=== PATIENT | male | born 1995 | race Two or more races ===

== ENCOUNTER 2023-12-28 06:07 | Emergency (ER) | payer OTHER ==
[~2023-12-28] VITALS: Ht 183.5 cm; Wt 95.5 kg
--- NOTE | 2023-12-28 06:33 | ED.PDOC ---
HPI (NEURO) HPI Comments 28 year old male with a history of migraines presents for a chief complaint of of right temporal headache that radiates to the posterior neck. Associated with photophobia. Onset: 2 days ago. No prior history of migraines. Was seen at his PCP at [place] yesterday and was Rx Sumatriptan with no improvement Has also tried IBU and muscle relaxers with no improvement Today he states he also woke up with non radiating lumbosacral back pain Back pain started this morning. Onset was sudden. Reports going to the gym 3 days ago and was squatting and reports symptoms started after Denies fever, chills, night sweats Denies persistent nausea Denies vomiting Denies thunderclap headache Denies phonophobia Denies head trauma around the time headache started Denies family history of brain issues persistent headaches Denies taking any blood thinner medication Denies vision/hearing changes Denies focal loss of strength/sensation or changes in speech Denies IV drug use history of HIV/TB Denies abdominal "tearing" pain Denies syncope Time Seen by MD: 06:19 Reviewed Notes: Nurses Notes, Medications, Allergies Information Source: Patient Past Medical History PAST MEDICAL HISTORY: Denies Family History Family History: Reviewed,noncontributory to illness Social History Smoker: Non-Smoker Alcohol: Denies ETOH Use Drugs: Denies Drug Use All Other Systems: Reviewed and Negative (Per HPI) Physical Exam General Appearance: No Apparent Distress, Normal HEENT: Head (Normocephalic atraumatic), Normal ENT Inspection, PERRL/EOMI, Pharynx Normal, TMs Normal Neck: Full Range of Motion, Normal, Normal Inspection, Other (Tenderness to posterior cervical region to palpation. Full ROM. No nuchal rigidity, brudzinski negative, kernig negative) Respiratory: Chest Non-Tender, Lungs Clear, No Accessory Muscle Use, No Respiratory Distress, Normal Breath Sounds Cardiovascular: No Murmur, No Gallop, Regular Rate/Rhythm Breast Exam: Deferred Gastrointestinal: No Organomegaly, Non Tender, No Pulsatile Mass, Normal Bowel Sounds, Soft Genitalia: Deferred Pelvic: Deferred Rectal: Deferred Extremities: No calf tenderness, Normal capillary refill, Normal inspection, Normal range of motion, Non-tender, No pedal edema Musculoskeletal : Apperance: Normal Neurologic: Alert, speeder frame tender II-XII nml as Tested, No Motor Deficits, Normal Affect, Normal Mood, No Sensory Deficits, Other (Romberg pronator drift negative) Cerebellar Function: Normal Reflexes: Normal Skin: Dry, Normal Color, Warm, Other (No skin rash. No enterovirus rash) Lymphatic: No Adenopathy Was a procedure done? Was a procedure done?: No Differential Diagnosis (SZ) Seizure: Other Headache: Cluster, Migraine, Closed Head Injury, Mass Lesion, Post-Traumatic, Sinusitis X-Ray, Labs, Meds, VS Vital Signs Date Time Temp Pulse Resp B/P (MAP) Pulse Ox O2 Delivery O2 Flow Rate FiO2 12/28/23 09:18 99.0 85 18 122/61 (81) 95 99.0 12/28/23 07:41 112 20 97 Room Air 12/28/23 07:41 100.7 112 20 106/63 (77) 97 100.7 12/28/23 06:14 100.7 112 20 106/63 (77) 97 Lab Test 12/28/23 08:10 12/28/23 06:50 12/28/23 06:35 Range/Units Influenza Type A Antigen Negative Negative Influenza Type B Antigen Negative Negative SARS-CoV-2 Antigen (Rapid) Negative NEGATIVE White Blood Count 8.1 4.4-10.8 10^3/uL Red Blood Count 5.57 4.5-5.90 10^6/uL Hemoglobin 17.9 H 13.5-17.5 g/dL Hematocrit 51.2 41.0-53.0 % Mean Corpuscular Volume 92.0 80.0-100.0 fL Mean Corpuscular Hemoglobin 32.2 H 28.0-32.0 pg Mean Corpuscular Hemoglobin Concent 35.0 32.0-36.0 g/dL Red Cell Distribution Width 12.4 11.8-14.3 % Platelet Count 193 140-450 10^3/uL Mean Platelet Volume 8.1 6.9-10.8 fL Neutrophils (%) (Auto) 74.0 37.0-80.0 % Lymphocytes (%) (Auto) 16.7 10.0-50.0 % Monocytes (%) (Auto) 9.0 0.0-12.0 % Eosinophils (%) (Auto) 0.0 0.0-7.0 % Basophils (%) (Auto) 0.3 0.0-2.0 % Neutrophils # (Auto) 6.0 1.6-8.6 10 ^3/uL Lymphocytes # (Auto) 1.3 0.4-5.4 10 ^3/uL Monocytes # (Auto) 0.7 0-1.3 10 ^3/uL Eosinophils # (Auto) 0 0-0.8 10 ^3/uL Basophils # (Auto) 0 0-0.2 10 ^3/uL Nucleated Red Blood Cells 0.2 % Erythrocyte Sedimentation Rate 7 0-20 mm/hr Sodium Level 136 136-145 mmol/L Potassium Level 4.2 3.5-5.1 mmol/L Chloride Level 103 98-107 mmol/L Carbon Dioxide Level 28 20-31 mmol/L Anion Gap 5 5-15 Blood Urea Nitrogen 12 9-23 mg/dL Creatinine 1.28 0.700-1.30 mg/dL Glomerular Filtration Rate Calc 79 >90 mL/min BUN/Creatinine Ratio 9.4 L 10.0-20.0 Serum Glucose 125 H 74-106 mg/dL Lactic Acid Level 2.0 0.4-2.0 mmol/L Calcium Level 9.7 8.7-10.4 mg/dL Total Bilirubin 0.5 0.2-1.0 mg/dL Aspartate Amino Transferase (AST) 34 13-40 U/L Alanine Aminotransferase (ALT) 69 H 7-40 U/L Alkaline Phosphatase 81 46-116 U/L C-Reactive Protein High Sensitivity 5.78 H <1.0 mg/dL Total Protein 7.9 5.7-8.2 g/dL Albumin 4.5 3.2-4.8 g/dL Hepatitis B Surface Antigen Pending Hepatitis B Surface Antibody Pending Hepatitis C Antibody Pending HIV (1&2) Antibody Negative Negative Urine Color Yellow Yellow Urine Clarity Clear Clear Urine pH 6.5 5.0-9.0 Urine Specific Walker 1.026 1.001-1.035 Urine Protein Trace H Negative Urine Ketones Negative Negative Urine Blood Trace H Negative /uL Urine Nitrite Negative Negative Urine Bilirubin Negative Negative Urine Urobilinogen Normal Negative mg/dL Urine Leukocyte Esterase Negative Negative /uL Urine RBC 8 0 - 3 /hpf Urine WBC 2 0 - 3 /hpf Urine Squamous Epithelial Cells Few <5 /hpf Urine Bacteria None seen None Seen /hpf Urine Mucus Few None Seen Urine Glucose Normal Normal mg/dL Current Medications Medications (Trade) Dose Ordered Sig/Celso Route Start Time Stop Time Status Last Admin Sodium Chloride 1,000 ml @ 1,000 mls/hr Q1H ONCE IV 12/28/23 06:45 12/28/23 07:44 DC 12/28/23 08:18 PATIENT: JARED CATHERINET: [id number]: [id number] : 1995 LOC: ER ROOM / BED: / AGE / SEX: 28 / M ADM STATUS: REG ER SERVICE 4 ORDERING PHYSICIAN: JOE KOVACS NP PROCEDURE(s): HWOCT - HEAD WITHOUT CONTRAST REASON: PAIN ORDER NUMBER(s): [id number], ACCESSION NUMBER(s): [id number] CLINICAL INFORMATION: 28 years old, Male; PAIN. TECHNIQUE: Axial imaging was obtained through the brain without contrast. Coronal and sagittal reformatted images were obtained, reviewed, and stored. Images were reviewed in brain and bone windows. All CT scans at this medical facility are performed using dose modulation techniques as appropriate to a performed exam including the following: Automated exposure control was utilized; adjustment of the MA and/or KV according to patient size; and use of iterative reconstruction technique. CTDIvol = 64.25, 0.07 mGy DLP = 1264.16, 3.16 mGy-cm COMPARISON: None FINDINGS: There is no acute intracranial hemorrhage or extraaxial fluid collection. No mass effect or midline shift. The ventricles and sulci are within normal limits in size for age. Basal cisterns are patent. The calvarium is unremarkable. Paranasal sinuses and mastoid air cells are clear. IMPRESSION: No CT evidence of acute intracranial abnormality. ATED BY: CHAD VASQUEZ DO DICTATED DATE/TIME: 12/28/23735 SIGNED BY: CHAD VASQUEZ DO SIGNED DATE/TIME: 12/28/23735 CC: ATIENT: MARTIN CATHERINECEDRICK: [id number]: [id number] : 1995 LOC: ER ROOM / BED: / AGE / SEX: 28 / M ADM STATUS: REG ER SERVICE 4 ORDERING PHYSICIAN: JOE KOVACS ANALYSIS INTERN PROCEDURE(s): CS2 - CERVICAL WITHOUT CONTRAST REASON: PAIN ORDER NUMBER(s): [id number], ACCESSION NUMBER(s): [id number] CLINICAL HISTORY: PAIN COMPARISON: None TECHNIQUE: Axial CT images of the cervical spine were obtained without IV contrast. Coronal and sagittal reformatted images were obtained. All CT scans at this medical facility are performed using dose modulation techniques as appropriate to a performed exam including the following: Automated exposure control was utilized; adjustment of the MA and/or KV according to patient size; and use of iterative reconstruction technique. CTDIvol = 0.07, 24.3 mGy DLP = 3.16, 728.33 mGy-cm FINDINGS: Bones: Straightening of the normal cervical lordosis. No significant spondylolisthesis. Vertebral body heights are maintained. Posterior elements are intact. No acute fracture. Paraspinal soft tissues: Prevertebral and paraspinal soft tissues are unremarkable. Other: No other significant findings. Cervical disc levels: C2-C3: No significant disc/facet abnormality. No significant spinal canal or neural foraminal stenosis. C3-C4: No significant disc/facet abnormality. No significant spinal canal or neural foraminal stenosis. C4-C5: No significant disc/facet abnormality. No significant spinal canal or neural foraminal stenosis. C5-C6: No significant disc/facet abnormality. No significant spinal canal or neural foraminal stenosis. C6-C7: No significant disc/facet abnormality. No significant spinal canal or neural foraminal stenosis. C7-T1: No significant disc/facet abnormality. No significant spinal canal or neural foraminal stenosis. IMPRESSION: 1. No evidence of acute fracture or spondylolisthesis . 2. Straightening of the normal cervical lordosis. Findings may be positional or due to muscle spasm. ATED BY: CHAD VASQUEZ DO DICTATED DATE/TIME: 12/28/23748 SIGNED BY: CHAD VASQUEZ DO SIGNED DATE/TIME: 12/28/23748 CC: X-Ray, Labs, Meds, VS Comment History and physical exam consistent with musculoskeletal pain without concerns for serious pathology at this time Imaging ordered, interpreted by radiologist, reviewed by me Influenza and Covid Negative CBC unremarkable CMP unremarkable Lactic WNL CRP elevated UA WNL Supportive care advised (rest, ice, heat, NSAIDs, stretching exercises) Massage muscles with cold pack or ice for 20 minutes 4 times per day. Usually most useful if there is swelling during the first 48 hours Heating pad on the most painful area for 20 minutes to relieve muscle spasm Sleep and the most comfortable sleeping position (usually on the side with knees bent) Light stretching, no strenuous activity, avoid frequent bending, avoid carrying heavy objects Discussed possible benefits of yoga and acupuncture On reevaluation, patient had symptomatic improvement. Patient is stable for discharge at this time. External notes reviewed. Test results and diagnostic imaging interpreted. All diagnostic findings, discharge care, education and instructions provided Follow-up with PCP in 2 to 3 days Patient verbalized understanding and agreed to treatment plan Vital signs stable, afebrile, no acute distress noted Patient ambulatory with strong steady gait Advised to return precautions for any new or worsening symptoms, return to ER immediately for re-evaluation Patient is aware that the purpose of this visit was for an acute medical emergency requiring emergent stabilization. Chronic conditions, including malignancies have not been ruled out. Patient is instructed to follow up with PCP as directed and discharge instructions for continued care and workup. If unable to arrange follow-up, patient is to return to the emergency department for reassessment. Patient (parent or legal guardian if applicable) was given verbal and written discharge instructions and acknowledges understanding. Time of 1ST Reevaluation: 06:57 Reevaluation 1ST: Improved Time of 2ND Reevaluation: 09:22 Reevaluation 2ND: Improved Patient Education/Counseling: Diagnosis, Treatment Family Education/Counseling: Diagnosis, Treatment Departure 1 Departure Time of Disposition: 09:23 Impression: Primary Impression: Headache Qualified Codes: R51.9 - Headache, unspecified Additional Impressions: Cervical pain Back pain Qualified Codes: M54.50 - Low back pain, unspecified Disposition: 01 HOME / SELF CARE / HOMELESS Condition: Fair Discharged With: Self Critical Care Note Critical Care Time?: No Stability Stability form required: No Heart Score Heart Score: Heart Score Response (Comments) Value History N/A 0 EKG N/A 0 Age N/A 0 Risk Factors N/A 0 Troponin N/A 0 Total 0 JOE KOVACS NP Dec 28, 2023 06:33
[2023-12-28] MEDS: diphenhdrAMINE HCL 50 MG/1 ML VL IV ONE (06:45)
[2023-12-28] MEDS: PROCHLORPERAZINE EDISYLATE 5 MG/ML 2ML VIAL IV ONE (06:45)
[2023-12-28] MEDS: KETOROLAC TROMETH 30 MG/ML 1ML VIAL IV ONE (06:45)
[2023-12-28 07:18] LABS: Basophils # (auto) 0 10 ^3/uL (0-0.2); Eosinophils # (auto) 0 10 ^3/uL (0-0.8); Hemoglobin 17.9 g/dL (13.5-17.5); Lymphocytes # (auto) 1.3 10 ^3/uL (0.4-5.4); Nucleated Red Blood Cells % 0.2 %; Red Cell Distribution Width 12.4 % (11.8-14.3)
[2023-12-28 07:20] LABS: Basophils % (auto) 0.3 % (0.0-2.0); Hematocrit 51.2 % (41.0-53.0); Lymphocytes % (auto) 16.7 % (10.0-50.0); Mean Corpuscular Hemoglobin 32.2 pg (28.0-32.0); Monocytes # (auto) 0.7 10 ^3/uL (0-1.3); Platelet Count (auto) 193 10^3/uL (140-450); Red Blood Cells 5.57 10^6/uL (4.5-5.90); White Blood Cell 8.1 10^3/uL (4.4-10.8)
[2023-12-28 07:33] LABS: Alanine Aminotransferase 69 U/L (7-40); Albumin 4.5 g/dL (3.2-4.8); Alkaline Phosphatase 81 U/L (46-116); Anion Gap 5 (5-15); Aspartate Aminotransferase 34 U/L (13-40); BUN/Creatinine Ratio 9.4 (10.0-20.0); Blood Urea Nitrogen 12 mg/dL (9-23); Calcium 9.7 mg/dL (8.7-10.4); Carbon Dioxide 28 mmol/L (20-31); Chloride 103 mmol/L (98-107); Glucose 125 mg/dL (74-106); Potassium 4.2 mmol/L (3.5-5.1); Sodium 136 mmol/L (136-145)
[2023-12-28 07:34] LABS: Bilirubin, Total 0.5 mg/dL (0.2-1.0); Total Protein 7.9 g/dL (5.7-8.2)
[2023-12-28 07:35] LABS: Urine Bacteria None Seen /hpf (None Seen)
--- NOTE | 2023-12-28 07:39 | DVH ---
CLINICAL INFORMATION: 28 years old, Male; PAIN. TECHNIQUE: Axial imaging was obtained through the brain without contrast. Coronal and sagittal refor matted images were obtained, reviewed, and stored. Images were reviewed in brain and bone windows. A ll CT scans at this medical facility are performed using dose modulation techniques as appropriate to a performed exam including the following: Automated exposure control was utilized; adjustment of the MA and/or KV according to patient size; and use of iterative reconstruction technique. CTDIvol = 64.25, 0.07 mGy DLP = 1264.16, 3.16 mGy-cm COMPARISON: None FINDINGS: There is no acute intracranial hemorrhage or extraaxial fluid collection. No mass effect o r midline shift. The ventricles and sulci are within normal limits in size for age. Basal cisterns a re patent. The calvarium is unremarkable. Paranasal sinuses and mastoid air cells are clear. IMPRESSION: No CT evidence of acute intracranial abnormality.
[2023-12-28 07:49] LABS: Erythrocyte Sedimentation Rate 7 mm/hr (0-20)
--- NOTE | 2023-12-28 07:51 | DVH ---
CLINICAL HISTORY: PAIN COMPARISON: None TECHNIQUE: Axial CT images of the cervical spine were obtained without IV contrast. Coronal and sagit lucy reformatted images were obtained. All CT scans at this medical facility are performed using dose modulation techniques as appropriate to a performed exam including the following: Automated exposure control was utilized; adjustment of the MA and/or KV according to patient size; and use of iterative reconstruction technique. CTDIvol = 0.07, 24.3 mGy DLP = 3.16, 728.33 mGy-cm FINDINGS: Bones: Straightening of the normal cervical lordosis. No significant spondylolisthesis. Vertebral bod y heights are maintained. Posterior elements are intact. No acute fracture. Paraspinal soft tissues: Prevertebral and paraspinal soft tissues are unremarkable. Other: No other significant findings. Cervical disc levels: C2-C3: No significant disc/facet abnormality. No significant spinal canal or neural foraminal stenosi s. C3-C4: No significant disc/facet abnormality. No significant spinal canal or neural foraminal stenosi s. C4-C5: No significant disc/facet abnormality. No significant spinal canal or neural foraminal stenosi s. C5-C6: No significant disc/facet abnormality. No significant spinal canal or neural foraminal stenosi s. C6-C7: No significant disc/facet abnormality. No significant spinal canal or neural foraminal stenosi s. C7-T1: No significant disc/facet abnormality. No significant spinal canal or neural foraminal stenosi s. IMPRESSION: 1. No evidence of acute fracture or spondylolisthesis . 2. Straightening of the normal cervical lordosis. Findings may be positional or due to muscle spasm.
[2023-12-28] MEDS: SODIUM CHLORIDE 0.9% 1,000 ML IV ONE (08:18)
[2023-12-28 08:19] LABS: Urine Blood TRACE /uL (Negative); Urine Clarity Clear (Clear); Urine Color Yellow (Yellow); Urine Mucus FEW (None Seen); Urine Protein, UAD TRACE (Negative); Urine Specific Gravity 1.026 (1.001-1.035); Urine Urobilinogen Normal (Negative); Urine WBC 2 /hpf (0 - 3); Urine pH 6.5 (5.0-9.0)
[2023-12-28 08:50] LABS: COVID19 ANTIGEN SOFIA FIA NEGATIVE (NEGATIVE); Rapid Influenza A Negative (Negative); Rapid Influenza B Negative (Negative)
[2023-12-28 09:18] VITALS: BP 122/61; PULSE 85; RESP 18; TEMP 99; O2SAT 95
[2023-12-29 08:55] LABS: Hepatitis B Surface Antibody Negative (Negative)
[2023-12-29 09:07] LABS: Hepatitis B Surface Antigen Negative (Negative)
== END 2023-12-28 09:41 | disposition home or self-care (01) ==
LOC: ER 06:10
DX: M54.59 Other low back pain (principal); R51.9 Headache, unspecified; M54.2 Cervicalgia; M54.50 Low back pain, unspecified; R06.02 Shortness of breath; Z20.822 Contact with and (suspected) exposure to COVID-19
CPT/HCPCS: 36415; 70450; 72125; 80053; 81001; 83605; 85025; 85652; 86141; 86703; 86706; 86803; 87340; 87426; 87804; 96360; 99284; J0780; J1200; J1885; J7030